=== PATIENT | female | born 1965 | race Caucasian/White ===

== ENCOUNTER 2018-11-10 16:48 | Emergency (ER) | payer MEDICAID ==
[~2018-11-10] VITALS: Ht 157.5 cm; Wt 69.6 kg
[~2018-11-10 16:48] MED LIST: HYDR-3498 PO; PHEN-538 PO
[2018-11-10 16:58] VITALS: Ht 157.5 cm; Wt 69.6 kg
[2018-11-10] MEDS ORDERED: PROCHLORPERAZINE 10 MG INJ IV STA (18:06)
[2018-11-10] MEDS ORDERED: HYDROmorphONE 1 MG/ML SYG IV STA (18:06)
[2018-11-10] MEDS ORDERED: DIPHENHYDRAMINE 50 MG INJ IV STA (18:06)
[2018-11-10] MEDS ORDERED: SOD CHLORIDE 0.9% 1,000 ML IV STA (18:06)
--- NOTE | 2018-11-10 19:02 | ERD ---
ER Documentation Chief Complaint Chief Complaint bilateral leg numbness with foot/hand tingling, VERDUGO, dizziness X 2 days HPI This is a 53-year-old female says that she has had a headache at the vertex of her head that is pounding and she is also having bilateral tingling to her feet and hands over the past 2 days. She does feel little bit dizzy to described as room spinning at times. No difficulty talking swallowing or abnormal vision. Denies any hyperventilation or anxiety. Denies fever denies any photophobia or phonophobia ROS All systems reviewed and are negative except as per history of present illness. Medications Home Meds Active Scripts Phenazopyridine Hcl* (Pyridium*) 200 Mg Tab, 200 MG PO TID PRN for DYSURIA, #6 TAB Prov:DOROTHEA GUERRA [employer] 10/08/15 Hydrocodone Bit-Acetaminophen* (Harrison*) 5-325 Mg Tab, 1 TAB PO Q6 PRN for PAIN, #20 TAB Prov:DOROTHEA GUERRA [employer] 10/08/15 Reported Medications [none] Unknown Strength No Conflict Check 10/08/15 Allergies Allergies: Coded Allergies: No Known Drug Allergies (Verified Allergy, Unknown, 12/05/14) PMhx/Soc History of Surgery: Yes (cholecystectomy, appendectomy, bilateral tubal li gation) Anesthesia Reaction: No Hx Neurological Disorder: No Hx Respiratory Disorders: No Hx Cardiac Disorders: No Hx Psychiatric Problems: No Hx Miscellaneous Medical Probl: No Hx Alcohol Use: No Hx Substance Use: No Hx Tobacco Use: No Smoking Status: Never smoker FmHx Family History: No coronary disease Physical Exam Vitals Vital Signs Date Temp Pulse Resp B/P (MAP) Pulse Ox O2 O2 Flow FiO2 Time Delivery Rate 11/10/18 60 113/79 99 Room Air 17:50 (90) 11/10/18 98.3 72 18 130/78 96 16:58 (95) Physical Exam Const: Well-developed, well-nourished Head: Atraumatic, normocephalic Eyes: Normal Conjunctiva, PERRLA, EOMI, normal sclera, no nystagmus ENT: Normal External Ears, Nose and Mouth, moist mucus membranes. Neck: Full range of motion. No meningismus, no lymphadenopathy. Resp: Clear to auscultation bilaterally, no wheezing, rhonchi, rales Cardio: Regular rate and rhythm, no murmurs, S1 S2 present Abd: Soft, non tender x 4, non distended. Normal bowel sounds, no guarding or rebound, no pulsitile abdominal masses or bruits Skin: No petechiae or rashes, no ecchymosis , no maculopapular rash Back: No midline or flank tenderness Ext: No cyanosis, or edema, FROM x 4, normal inspection, neurovascul rachael intact x 4 Neur: Awake and alert, STR 5/5 x 4, slight decreased sensation to her feet and hands subjectively, no focal findings, cerebellum intact Psych: Normal Mood and Affect Result Diagram: 11/10/18180811/10/181808 Results 24 hrs Laboratory Tests Test 11/10/18 18:09 White Blood Count 7.8 10^3/ul Red Blood Count 4.53 10^6/ul Hemoglobin 13.4 g/dl Hematocrit 40.0 % Mean Corpuscular Volume 88.3 fl Mean Corpuscular Hemoglobin 29.6 pg Mean Corpuscular Hemoglobin Concent 33.5 g/dl Red Cell Distribution Width 12.9 % Platelet Count 256 10^3/UL Mean Platelet Volume 11.1 fl Immature Granulocytes % 0.500 % Neutrophils % 49.8 % Lymphocytes % 38.5 % Monocytes % 8.1 % Eosinophils % 2.6 % Basophils % 0.5 % Nucleated Red Blood Cells % 0.0 /100WBC Immature Granulocytes # 0.040 10^3/ul Neutrophils # 3.9 10^3/ul Lymphocytes # 3.0 10^3/ul Monocytes # 0.6 10^3/ul Eosinophils # 0.2 10^3/ul Basophils # 0.0 10^3/ul Nucleated Red Blood Cells # 0.0 10^3/ul Sodium Level 142 mmol/L Potassium Level 4.2 mmol/L Chloride Level 104 mmol/L Carbon Dioxide Level 31 mmol/L Anion Gap 7 Blood Urea Nitrogen 10 mg/dl Creatinine 0.55 mg/dl Est Glomerular Filtrat Rate mL/min > 60 mL/min Glucose Level 119 mg/dl Calcium Level 10.9 mg/dl Current Medications Medications Dose Sig/Jasmin Start Time Status Last (Trade) Ordered Route PRN Stop Time Admin Dose Reason Admin Sodium 1,000 ml @ Q1H STAT 11/10/18 DC 11/10/18 Chloride 1,000 mls/hr IV 18:06 11/10/18 18:19 19:05 10 mg ONCE STAT 11/10/18 DC 11/10/18 Prochlorperaz IV 18:06 11/10/18 18:19 ine 18:08 (Compazine Inj) 1 mg ONCE STAT 11/10/18 DC 11/10/18 Hydromorphone IV 18:06 11/10/18 18:19 HCl 18:08 (Dilaudid) 25 mg ONCE STAT 11/10/18 DC 11/10/18 Diphenhydrami IV 18:06 11/10/18 18:19 ne HCl 18:08 (Benadryl) Procedures/MDM Patient: LALY LEDESMA : 1965 Age: 53 Sex: F MR #: [id number] DOS: 11/10/18 1806 Ordering MD: EMMANUEL NIELSON DO Location: E/R Room/Bed: PROCEDURE: CT BRAIN WITHOUT CONTRAST CLINICAL INDICATION: Headache. TECHNIQUE: Transaxial CT examination of the head was performed without intravenous administration of contrast on a [employer] helical CT scanner. In addition to the brain and bone windows of transaxial images, multiple sagittal and coronal reformatted images were generated for the interpretation. DICOM images are available. Radiation dose: CTDIvol = 40 mGy; total DLP = 634 mGy-cm. One or more of the following dose reduction techniques were used: - Automated exposure control. - Adjustment of the mA and/or kV according to patient size. - Use of iterative reconstruction technique. COMPARISON: MR examination of 04/10/2014. FINDINGS: Evaluation of the supratentorial compartment demonstrates no hemorrhage, cerebral infarction, mass effect, midline shift, or abnormal extra-axial fluid collection. Mild enlargement of the ventricles and cortical sulci in a pattern of atrophy is normal for the age. Evaluation of the posterior fossa reveals no hemorrhage, infarction, or mass effect. The fourth ventricle is normal in size and at midline. The cerebellar tonsils are in normal position relative to the foramen magnum. The skull is intact without abnormal bone density or destructive lesion. Bilateral mastoid air cells and the visualized paranasal sinuses are normally aerated. IMPRESSION: 1. No intracranial hemorrhage, hydrocephalus, or cerebral infarction. 2. No significant interval change. RPTAT: EE Physician Jason Date Time Electronically viewed and signed by Cristi Botello Physician on 11/10/2018 18:56 PH/ CC: EMMANUEL NIELSON DO [id number] Patient's headache is gone. She says her arms and legs are no longer tingling. I feel the patient likely has a type of migraine/complex migraine and will discharge her home as she is completely asymptomatic now Patient feels much better at this time, and vital signs are normal, symptoms have improved. I did give strict instructions to return to the ED if symptoms continue or worsen, patient will otherwise follow-up with primary care physician. Patient understood instructions and agreed to plan. Disclaimer: Inadvertent spelling and grammatical errors are likely due to EHR/dictation software use and do not reflect on the overall quality of patient care. Also, please note that the electronic time recorded on this note does not necessarily reflect the actual time of the patient encounter. Departure Diagnosis: Primary Impression: Migraine headache Migraine type: unspecified Status migrainosus presence: without status migrainosus Intractability: not intractable Qualified Codes: G43.909 - Migraine, unspecified, not intractable, without status migrainosus Condition: Stable EMMANUEL NIELSON DO November 10, 2018 19:02
[2018-11-10] MEDS ORDERED: HYDR-3980 PO (19:33)
[2018-11-10] MEDS ORDERED: IBUP800T48 PO (19:33)
[2018-11-10 19:50] VITALS: BP 125/66; PULSE 58; RESP 12
== END 2018-11-10 19:59 | disposition home or self-care (01) ==
LOC: E/R 16:48
DX: G43.909 Migraine, unspecified, not intractable, without status migrainosus (principal)
CPT/HCPCS: 36415; 70450; 80048; 85025; 96374; 96375; J0780; J1170; J1200; J7030; Z7502